=== PATIENT | female | born 1945 ===

== ENCOUNTER 2017-06-14 08:35 | Outpatient (CLI) | payer OTHER ==
[~2017-06-14] VITALS: Ht 152.4 cm; Wt 58.5 kg
== END 2017-06-14 08:50 | disposition home or self-care (01) ==
LOC: OFIC 805 08:35
DX: H93.13 Tinnitus, bilateral (principal); H61.23 Impacted cerumen, bilateral

== ENCOUNTER → 2017-07-03 07:45 | Outpatient (CLI) | payer OTHER | END | disposition home or self-care (01) | LOC: LAB 07:45 | DX: D64.89 Other specified anemias (principal); E88.89 Other specified metabolic disorders; D68.8 Other specified coagulation defects; N39.0 Urinary tract infection, site not specified; A49.02 Methicillin resistant Staphylococcus aureus infection, unspecified site; E83.42 Hypomagnesemia ==

== ENCOUNTER → 2017-07-03 07:50 | Outpatient (CLI) | payer OTHER | END | disposition home or self-care (01) | LOC: RAD 07:50 | DX: Z76.89 Persons encountering health services in other specified circumstances (principal) ==

== ENCOUNTER 2017-07-06 10:38 | Outpatient (CLI) | payer OTHER | END 2017-07-06 12:54 | disposition home or self-care (01) | LOC: EKG 10:38 | DX: I49.8 Other specified cardiac arrhythmias (principal) ==

== ENCOUNTER 2017-07-12 15:05 | Inpatient (IN) | payer OTHER ==
[~2017-07-12] VITALS: Ht 154.9 cm; Wt 63.5 kg
[2017-07-12] MEDS ORDERED: SYNTHROID75 MCG (15:49)
[2017-07-12] MEDS ORDERED: MOBIC15 MG (15:50)
[2017-07-12] MEDS ORDERED: PANTOPRAZOLE SO40 MG (15:50)
[2017-07-12] MEDS ORDERED: ENALAPRIL MALEA10 MG (15:50)
[2017-07-12] MEDS ORDERED: TOPAMAX25 MG (15:51)
== END 2017-07-22 15:55 | DRG 470 ==
LOC: SURH 07-19 05:52 → O/R 07-19 05:52 → SURH 07-19 15:07
PROVIDERS: Orthopaedic Surgery
PROC: 0SRD0J9 Replacement of Left Knee Joint with Synthetic Substitute, Cemented, Open Approach (ICD-10-PCS; principal; 2017-07-19 07:00)
DX: M17.12 Unilateral primary osteoarthritis, left knee (principal); D62 Acute posthemorrhagic anemia; K29.60 Other gastritis without bleeding

== ENCOUNTER 2017-07-12 16:36 | Outpatient (CLI) | payer OTHER ==
[~2017-07-12 16:36] MED LIST: ENALAPRIL MALEA10 MG; MOBIC15 MG; PANTOPRAZOLE SO40 MG; SYNTHROID75 MCG; TOPAMAX25 MG
== END 2017-07-12 16:52 | disposition home or self-care (01) ==
LOC: RAD 16:36 → LAB 16:36 → RAD 16:52
DX: M79.652 Pain in left thigh (principal); M79.605 Pain in left leg

== ENCOUNTER 2017-09-18 16:18 | Inpatient (IN) | payer OTHER ==
[~2017-09-18] VITALS: Ht 165.1 cm; Wt 60.8 kg
== END 2017-09-23 07:53 | disposition home or self-care (01) | DRG 378 ==
LOC: ER 16:18 → MEDJ 09-19 12:13
PROC: BD15YZZ Fluoroscopy of Upper GI using Other Contrast (ICD-10-PCS; principal; 2017-09-19)
DX: K92.2 Gastrointestinal hemorrhage, unspecified (principal); D62 Acute posthemorrhagic anemia; K44.9 Diaphragmatic hernia without obstruction or gangrene; K21.9 Gastro-esophageal reflux disease without esophagitis

== ENCOUNTER 2018-03-14 12:05 | Emergency (ER) | payer OTHER ==
[~2018-03-14] VITALS: Ht 154.9 cm; Wt 56.2 kg
== END 2018-03-14 15:43 | disposition home or self-care (01) ==
LOC: ER 12:05
DX: R10.13 Epigastric pain (principal); K92.0 Hematemesis; K44.9 Diaphragmatic hernia without obstruction or gangrene

== ENCOUNTER 2018-04-08 10:42 | Emergency (ER) | payer OTHER ==
[~2018-04-08] VITALS: Ht 154.9 cm; Wt 54.4 kg
== END 2018-04-08 18:09 | disposition home or self-care (01) ==
LOC: ER 10:42
DX: K29.60 Other gastritis without bleeding (principal)

== ENCOUNTER 2018-06-04 06:39 | Emergency (ER) | payer OTHER ==
[~2018-06-04] VITALS: Ht 154.9 cm; Wt 57.2 kg
== END 2018-06-04 17:31 | disposition home or self-care (01) ==
LOC: ER 06:39
DX: K21.9 Gastro-esophageal reflux disease without esophagitis (principal); K29.60 Other gastritis without bleeding; E86.0 Dehydration